=== PATIENT | female | born 1945 | race African-American/Black ===

== ENCOUNTER 2017-09-28 12:19 | Day surgery (SDC) | payer OTHER ==
[2017-09-14 12:01] VITALS: BMI 31.9
[2017-09-28] MEDS ORDERED: MITOMYCIN IC ONE (12:45)
--- NOTE | 2017-09-28 12:48 | HP ---
History & Physical Update - History History: No Change - Physical Physical: No Change - Assessment Assessment: No Change - Plan Plan: No Change
[2017-09-28] MEDS ORDERED: PROPOFOL 20 ML ONE (12:50)
--- NOTE | 2017-09-28 12:50 | OP ---
Operative Note - Note: Operative Date: 09/28/17 Pre-Operative Diagnosis: bladder tumor Operation: TURBT (large) w mitomycin instillation Findings: multiple papillary bladder tumors L anterolat wall Post-Operative Diagnosis: Same as Pre-op Surgeon: Sreekanth Su Anesthesiologist/PIPE INSPECTOR: Tamika Chilel Anesthesia: General Specimens Removed: bladder tumors Estimated Blood Loss (mls): 10 Drains & Tubes with Location: [address]ardo Operative Report Dictated: Yes
[2017-09-28] MEDS ORDERED: MIDAZOLAM HCL 2 MG/2 ML SINGLE DOSE VIAL ONE (12:51)
[2017-09-28] MEDS ORDERED: ONDANSETRON 4 MG/2 ML VIAL IVPUSH PRN (12:58)
[2017-09-28] MEDS ORDERED: oxyCODONE HCL 5 MG TABLET PO PRN (12:58)
[2017-09-28] MEDS ORDERED: LACTATED RINGERS SOLUTION 1,000 ML IV SCH (13:00)
[2017-09-28] MEDS ORDERED: GENTAMICIN SO4 80 MG/2 ML VIAL IVPB ONE (13:24)
[2017-09-28] MEDS ORDERED: GENTAMICIN SO4 80 MG/2 ML VIAL ONE (13:30)
[2017-09-28] MEDS ORDERED: DEXAMETHASONE SOD PHOSPHATE 4 MG/1 ML VIAL ONE (13:30)
--- NOTE | 2017-09-28 14:35 | OP ---
DATE OF OPERATION: 09/28/2017 PREOPERATIVE DIAGNOSIS: Bladder tumors. POSTOPERATIVE DIAGNOSIS: Bladder tumors. PROCEDURE: Transurethral resection of bladder tumors and mitomycin instillation. SURGEON: Sreekanth Su MD RADIOLOGIC TECHNOLOGIST CHIEF: None. ANESTHESIA: General via laryngeal mask. ANESTHESIOLOGIST: Tamika Chilel MD SPECIMENS: Bladder tumors. CULTURES: None. DRAINS: A 22-Latvian, 3-way Almeida catheter, 20-mL balloon. ESTIMATED BLOOD LOSS: Negligible. COMPLICATIONS: None. DESCRIPTION OF PROCEDURE: Patient was brought in the operating room, placed on the operating table in supine position. After administration of intravenous antibiotics, general anesthesia was administered, and sequential compression devices were placed. Pelvic examination under anesthesia was done, demonstrated a mobile pelvic mass. The genitals and vagina were now prepped and draped in the usual sterile manner. The 26-Latvian resectoscope with obturator was inserted into the bladder. The obturator was removed, and urine was evacuated. The transurethral resection Castrejon resectoscope bipolar was inserted, and cystoscopy was performed. This demonstrated no foreign bodies or stones. There was a large papillary tumor involving the left anterolateral wall, as well as several others involving the left lateral and anterior wall. They all appeared papillary in nature. All these tumors were now resected using a loop down to what appeared to be muscle. All visible bladder tumors in the bladder were removed using the resectoscope. Hemostasis was assured with electrocautery. All resected bladder tissue was removed from the bladder using Ellik evacuator. Both ureteral orifices were in their usual location, showed efflux bilaterally, and were clear and uninjured at the end of the procedure. Now, the bladder was left full, and a 22-Latvian Almeida catheter was inserted to 20 mL placed in the balloon, and now, 40 mg of mitomycin were instilled and 80 mg of water and left in place for an hour. CBI was begun. She tolerated the procedure well, was transferred to the recovery room in stable condition. She will be followed in the office. She will require BCG treatments most likely. SREEKANTH SU M.D. [id number]
[2017-09-28] MEDS: metoPROLOL SUCCINATE 25 MG TAB.SR.24H (FP) PO SCH (22:24)
[2017-09-29] MEDS ORDERED: PT OWN MED DRAWER 7, Y5N ONE (09:21)
[2017-09-29] MEDS: metoPROLOL SUCCINATE 25 MG TAB.SR.24H (FP) PO SCH (09:29)
[2017-09-29] MEDS ORDERED: amLODIPine BESYLATE 10 MG TABLET (FP) PO SCH (10:00)
[2017-09-29 14:59] VITALS: BP 118/48; PULSE 77; TEMP 98.6
--- NOTE | 2017-10-02 16:08 | PATH ---
Surgical Pathology Report Patient Name: JUJU WOODS Med. Rec. #: [id number] /Age/Gender: 1945 (Age: 71) / F Account: [id number] Location: AMBULATORY SURG Taken: 09/28/2017 Received: 09/29/2017 Reported: 10/02/2017 Physicians: Sreekanth Su M.D. 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 NO MUSCULARIS PROPRIA PRESENT FOR EVALUATION. Comment: Interdepartmental case reviewed with consensus on diagnosis. This case was discussed with Dr. uS on October 02, 2017. Electronically Signed Khoa Groves M.D. Gross Description Received in formalin labeled "bladder tumor," is a 4.4 x 4.0 x 0.3 cm aggregate of christensen fragments of soft tissue admixed with blood clot. The formalin is filtered and the specimen is entirely submitted in 4 cassettes. /09/29/2017 saudi/09/29/2017
== END 2017-09-29 15:00 | disposition home or self-care (01) ==
LOC: JASU-SURG 12:19 → JASUSAT 12:19 → EDUNIT# 13:00 → J8W 16:36 → JASUSAT 09-29 15:00
PROVIDERS: ATTEND Urology
PROC: 3E0K8GC Introduction of Other Therapeutic Substance into Genitourinary Tract, Via Natural or Artificial Opening Endoscopic (ICD-10-PCS; 2017-09-28)
PROC: 0T5B8ZZ Destruction of Bladder, Via Natural or Artificial Opening Endoscopic (ICD-10-PCS; principal; 2017-09-28 13:00)
DX: C67.9 Malignant neoplasm of bladder, unspecified (principal)
CPT/HCPCS: 88305-TC; 94760

== ENCOUNTER 2018-02-02 11:29 | Day surgery (SDC) | payer OTHER ==
[2018-01-31 13:10] VITALS: BMI 31.2
[2018-02-02] MEDS ORDERED: LIDOCAINE HCL 2% JELLY 10 ML CARTRIDGE ONE (12:25)
--- NOTE | 2018-02-02 13:03 | HP ---
History & Physical Update - History History: No Change - Physical Physical: No Change - Assessment Assessment: No Change - Plan Plan: No Change
--- NOTE | 2018-02-02 13:05 | OP ---
Operative Note - Note: Operative Date: 02/02/18 Pre-Operative Diagnosis: bladder tumor Operation: TURBT Findings: bladder tumor L lat wall Post-Operative Diagnosis: Same as Pre-op Surgeon: Srekeanth Su Anesthesiologist/MULTIMEDIA INSTRUCTIONAL DESIGNER: Jean-Paul Bolanos Anesthesia: General Specimens Removed: bladder tumor Estimated Blood Loss (mls): 0 Drains & Tubes with Location: 22 [address] Operative Report Dictated: Yes
[2018-02-02] MEDS ORDERED: PROPOFOL 20 ML ONE (13:32)
[2018-02-02] MEDS ORDERED: CLINDAMYCIN PHOSPHATE 600 MG/4 ML VIAL ONE (13:41)
[2018-02-02] MEDS ORDERED: CLINDAMYCIN PHOSPHATE 600 MG/4 ML VIAL IVPB ONE (13:45)
[2018-02-02] MEDS ORDERED: DEXAMETHASONE SOD PHOSPHATE 4 MG/1 ML VIAL ONE (13:50)
[2018-02-02] MEDS ORDERED: ONDANSETRON 4 MG/2 ML VIAL IVPUSH PRN (14:18)
[2018-02-02] MEDS ORDERED: ACETAMINOPHEN 1000 MG/100 ML VIAL (NON FORMULARY) IVPB ONE (14:18)
[2018-02-02] MEDS: METOPROLOL TARTRATE 25 MG TABLET (FP) PO SCH (21:15)
--- NOTE | 2018-02-02 21:22 | OP ---
DATE OF OPERATION: 02/02/2018 PREOPERATIVE DIAGNOSIS: Bladder tumor. POSTOPERATIVE DIAGNOSIS: Bladder tumor. PROCEDURE: Transurethral resection of bladder tumor. SURGEON: Sreekanth Flores M.D. BYPRODUCTS PUMP OPERATOR: None. ANESTHESIA: General via laryngeal mask. ANESTHESIOLOGIST: Jean-Paul Bolanos D.O. SPECIMENS: Bladder tumors. CULTURES: None. DRAINS: 22 Anguillan 2-way Almeida catheter, 5 mL balloon. ESTIMATED BLOOD LOSS: None. COMPLICATIONS: None. DESCRIPTION OF PROCEDURE: Patient was brought in the operating room, placed on the operating table in supine position. After administration of general anesthesia via laryngeal mask, intravenous antibiotics were administered, sequential compression devices were placed. The 26 Anguillan resectoscope sheath with obturator was inserted into the bladder. removed, urine was evacuated. 30-degree telescope was inserted with a working element to bipolar transurethral resectoscope. Cystoscope was performed, which demonstrated no foreign bodies. There were several bladder tumors involving the posterior bladder wall on the left just lateral to the ureteral orifice, and on the right behind the right ureteral orifice, as well as on the left lateral wall. Using the loop, these tumors were resected. Hemostasis was assured with electrocautery. Resected tissue was removed from the bladder, and then the bladder was left full. Instrument removed, and a 22 Anguillan Almeida catheter was placed with 10 mL in the balloon. She tolerated procedure well. Transferred to recovery in stable condition. SREEKANTH FLORES M.D. JUAN MANUEL/[id number]
[2018-02-03 06:27] VITALS: TEMP 98.2
[2018-02-03] MEDS ORDERED: amLODIPine BESYLATE 10 MG TABLET (FP) PO SCH (10:00)
[2018-02-03] MEDS ORDERED: CHOLECALCIFEROL (VITAMIN D3) 1,000 UNIT TABLET (FP) PO SCH (10:00)
--- NOTE | 2018-02-03 10:00 | PN ---
Progress Note, Physician Chief Complaint: day #1 s/p TURBT under GA - Current Medication List Current Medications: Active Medications Amlodipine Besylate (Norvasc -) 10 mg PO DAILY [facility] Cholecalciferol (Vitamin D3 -) 1,000 unit PO DAILY [facility] Fentanyl (Sublimaze Injection -) 50 mcg IVPUSH [id number] PRN PRN Reason: PAIN-PACU ORDER X 4 DOSES ONLY Metoprolol Tartrate (Lopressor -) 25 mg PO BID [facility] Last Admin: 02/02/18 21:15 Dose: 25 mg Ondansetron HCl (Zofran Injection) 4 mg IVPUSH Q6H PRN PRN Reason: NAUSEA AND/OR VOMITING - Objective Vital Signs: Vital Signs Temperature 98.2 F 02/03/18 06:00 Pulse Rate 72 02/03/18 06:00 Respiratory Rate 20 02/02/18 21:17 Blood Pressure 143/74 02/03/18 06:00 O2 Sat by Pulse Oximetry (%) 96 02/02/18 19:57 Assessment/Plan Pt is sitting up, doing well with no pain, no apparent anesthetic issues/ complications. Wants to go home.
[2018-02-03] MEDS: METOPROLOL TARTRATE 25 MG TABLET (FP) PO SCH (10:19)
[2018-02-03 11:22] VITALS: BP 143/65; PULSE 77
--- NOTE | 2018-02-07 17:20 | PATH ---
Surgical Pathology Report Patient Name: JUJU WOODS Med. Rec. #: [id number] /Age/Gender: 1945 (Age: 72) / F Account: [id number] Location: AMBULATORY SURG Taken: 02/02/2018 Received: 02/05/2018 Reported: 02/07/2018 Physicians: Sreekanth Su M.D. Specimen(s) Received URINARY BLADDER TUMOR Clinical History Neoplasm of urinary bladder Final Diagnosis Urinary bladder, tumor, TUR: non-invasive High-grade papillary urothelial carcinoma. Muscularis propria is not identified. Electronically Signed Ivana Paul M.D. Gross Description Received in formalin, labeled "urinary bladder tumor" are 2 white-christensen irregular portion of soft tissue each measuring 0.1 cm. in greatest dimension. The specimen is filtered and entirely submitted in one cassette. MLSZ/02/05/2018 sanml/02/05/2018
== END 2018-02-03 12:31 | disposition home or self-care (01) ==
LOC: JASUSAT 11:29 → J6S 18:00 → JASUSAT 02-03 12:31
PROVIDERS: ATTEND Urology
PROC: 0T5B8ZZ Destruction of Bladder, Via Natural or Artificial Opening Endoscopic (ICD-10-PCS; principal; 2018-02-02 13:00)
DX: C67.9 Malignant neoplasm of bladder, unspecified (principal)
CPT/HCPCS: 88305-TC; 94760; J0131

== ENCOUNTER 2020-02-27 04:32 | Day surgery (SDC) | payer OTHER ==
[2020-02-26 17:14] VITALS: BMI 31.6
--- NOTE | 2020-02-27 08:20 | HP ---
History & Physical Update - History History: No Change - Physical Physical: No Change - Assessment Assessment: No Change - Plan Plan: No Change
--- NOTE | 2020-02-27 08:21 | OP ---
Operative Note - Note: Operative Date: 02/27/20 Pre-Operative Diagnosis: bladder tumor Operation: cystoscopy, TURBT (medium) Findings: bladder tumor at L U/O and R BN, tumor inside L U/O Surgeon: Sreekanth Su Anesthesiologist/RESPIRATORY THERAPY AIDE: Russell Harvey Anesthesia: General Specimens Removed: bladder tumor Estimated Blood Loss (mls): 0 Drains & Tubes with Location: [address] Operative Report Dictated: Yes
[2020-02-27] MEDS ORDERED: MIDAZOLAM HCL 2 MG/2 ML SINGLE DOSE VIAL ONE (13:55)
[2020-02-27] MEDS ORDERED: LIDOCAINE HCL 2% JELLY (5 ML/TUBE) ONE (13:56)
[2020-02-27] MEDS ORDERED: LIDOCAINE HCL/PF 2% SDV 5ML VIAL ONE (13:56)
[2020-02-27] MEDS ORDERED: ceFAZolin SODIUM 1 GM VIAL ONE (14:13)
[2020-02-27] MEDS ORDERED: KETOROLAC TROMETHAMINE 30 MG/1 ML VIAL ONE (14:13)
[2020-02-27] MEDS ORDERED: DEXAMETHASONE SOD PHOSPHATE 4 MG/1 ML VIAL ONE (14:13)
[2020-02-27] MEDS ORDERED: ceFAZolin SODIUM 1 GM VIAL IVPB ONE (14:15)
[2020-02-27] MEDS ORDERED: ONDANSETRON 4 MG/2 ML VIAL IVPUSH PRN (14:44)
[2020-02-27] MEDS ORDERED: oxyCODONE HCL 5 MG TABLET PO PRN (14:44)
[2020-02-27 17:42] VITALS: BP 157/69; PULSE 76; TEMP 97.5
--- NOTE | 2020-02-27 17:52 | OP ---
DATE OF OPERATION: 02/27/2020 PREOPERATIVE DIAGNOSIS: Bladder tumor. POSTOPERATIVE DIAGNOSIS: Bladder tumor. PROCEDURE: Cystoscopy and transurethral resection of bladder tumor (medium size). SURGEON: Sreekanth Su M.D. SETTLEMENT CLERK: None. ANESTHESIA: General via laryngeal mask. ANESTHESIOLOGIST: Russell Harvey MD SPECIMENS: Bladder tumor. CULTURES: None. DRAINS: An 18-Rwandan Almeida catheter. ESTIMATED BLOOD LOSS: Negligible. COMPLICATIONS: None. DESCRIPTION OF PROCEDURE: DESCRIPTION OF PROCEDURE: Patient was brought in the operating room, placed on the operating room table in the supine position. After administration of general anesthesia via laryngeal mask, intravenous antibiotics were administered. Sequential compression devices were placed. The patient was placed in dorsal lithotomy position and the vagina and perineum were prepped and draped in usual sterile manner. A 22-Rwandan cystoscope was inserted into the bladder with the visualizing obturator. A 30-degree telescope was inserted, cystoscopy was performed. This demonstrated a papillary bladder tumor at the left ureteral orifice and the bladder neck at the 7 to 8 o'clock position. Now the bladder was left full and the instruments were removed. Now the bipolar Castrejon resectoscope was inserted with the obturator in place. The obturator was removed and urine was evacuated. The Castrejon working element of the resectoscope was inserted, and the transurethral resection of the bladder tumor was done down to its base. This realized that this was right at the ureteral orifice and there was some papillary growth emanating from the left ureteral orifice, and this could not be resected inside the orifice safely. Now the tumor at the bladder neck was resected. All resected bladder tumor was removed from the bladder using Ellik evacuator. Hemostasis was assured with electrocautery. There was no bleeding emanating from the left ureteral orifice. The bladder was left full. The scope removed. An 18-Rwandan Almeida catheter was placed in the bladder and 10 mL was placed in the balloon and placed on gravity drainage, returned clear. She tolerated the procedure well, transferred to the recovery room in stable condition. PLAN: Will remove Almeida catheter in several hours and follow up for left ureteroscopy, stent insertion and fulguration of ureteral tumor. SREEKANTH SU M.D. JUAN MANUEL/[id number]
--- NOTE | 2020-03-02 16:42 | PATH ---
Surgical Pathology Report Patient Name: JUJU WOODS Med. Rec. #: [id number] /Age/Gender: 1945 (Age: 74) / F Account: [id number] Location: [facility] SURGICAL Taken: 02/27/2020 Received: 02/28/2020 Reported: 03/02/2020 Physicians: Sreekanth Su M.D. Specimen(s) Received BLADDER TUMOR Clinical History Bladder tumor Final Diagnosis BLADDER TUMOR, TRANSURETHRAL RESECTION OF BLADDER TUMOR: HIGH GRADE PAPILLARY UROTHELIAL CARCINOMA, INVASIVE TO LAMINA PROPRIA. NO MUSCULARIS PROPRIA IDENTIFIED. NO FLAT CARCINOMA IN SITU (CIS) IDENTIFIED. Comment: Case seen in intradepartmental review with consensus on diagnosis. Office of Dr. Su informed that significant findings will be faxed, 03/02/2020 ([place]). Prior materials are noted. Electronically Signed Ashley Baird M.D. Gross Description Received in formalin labeled "bladder tumor," is a 2.1 x 1.5 x 0.3 cm aggregate of christensen-pink soft tissue fragments. The formalin is filtered and the specimen is entirely submitted in one cassette. DL/02/28/2020 saudi/02/28/2020
== END 2020-02-27 18:35 | disposition home or self-care (01) ==
LOC: JASU-SURG 04:32
PROVIDERS: ATTEND Urology
PROC: 0TBB8ZX Excision of Bladder, Via Natural or Artificial Opening Endoscopic, Diagnostic (ICD-10-PCS; principal; 2020-02-27 14:00)
DX: D49.4 Neoplasm of unspecified behavior of bladder (principal)
CPT/HCPCS: 88307-TC; 94760

== ENCOUNTER 2020-04-16 05:09 | Day surgery (SDC) | payer OTHER ==
[2020-04-15 14:08] VITALS: BMI 32.2
[2020-04-16] MEDS ORDERED: SUCCINYLCHOLINE CHLORIDE 200 MG/10 ML SYRINGE ONE (14:27)
[2020-04-16] MEDS ORDERED: PROPOFOL 20 ML ONE ×2 (14:27)
[2020-04-16] MEDS ORDERED: DEXAMETHASONE SOD PHOSPHATE 4 MG/1 ML VIAL ONE (14:27)
[2020-04-16] MEDS ORDERED: MIDAZOLAM HCL 2 MG/2 ML SINGLE DOSE VIAL ONE (14:28)
[2020-04-16] MEDS ORDERED: CLINDAMYCIN 600 MG PREMIX BAG IVPB ONE (14:45)
[2020-04-16] MEDS ORDERED: CLINDAMYCIN PHOSPHATE 600 MG/4 ML VIAL ONE (14:51)
[2020-04-16 17:28] VITALS: TEMP 98
[2020-04-16 18:46] VITALS: BP 119/66; PULSE 79
== END 2020-04-16 18:40 | disposition home or self-care (01) ==
LOC: JASU-SURG 05:09
PROVIDERS: ATTEND Urology
PROC: 0T578ZZ Destruction of Left Ureter, Via Natural or Artificial Opening Endoscopic (ICD-10-PCS; principal; 2020-04-16 14:30)
PROC: 0T9780Z Drainage of Left Ureter with Drainage Device, Via Natural or Artificial Opening Endoscopic (ICD-10-PCS; 2020-04-16 14:30)
PROC: 0T778DZ Dilation of Left Ureter with Intraluminal Device, Via Natural or Artificial Opening Endoscopic (ICD-10-PCS; 2020-04-16 14:30)
DX: D49.4 Neoplasm of unspecified behavior of bladder (principal); N28.89 Other specified disorders of kidney and ureter
CPT/HCPCS: 76000-TC-FY; 94760

== ENCOUNTER 2020-08-21 04:23 | Day surgery (SDC) | payer OTHER ==
[2020-08-18 13:12] VITALS: BMI 31.6
[2020-08-21] MEDS ORDERED: MIDAZOLAM HCL 2 MG/2 ML SINGLE DOSE VIAL ONE (12:37)
[2020-08-21] MEDS ORDERED: PROPOFOL 20 ML ONE (12:37)
[2020-08-21] MEDS ORDERED: LIDOCAINE HCL/PF 2% SDV 5ML VIAL ONE (12:37)
[2020-08-21] MEDS ORDERED: CLINDAMYCIN 600 MG PREMIX BAG IVPB ONE (12:40)
[2020-08-21] MEDS ORDERED: CLINDAMYCIN PHOSPHATE 600 MG/4 ML VIAL ONE (12:46)
[2020-08-21] MEDS ORDERED: EPHEDRINE SULFATE/0.9% NACL/PF 50 MG/10 ML SYRINGE NR ONE (12:55)
[2020-08-21] MEDS ORDERED: LACTATED RINGERS SOLUTION 1,000 ML IV SCH (14:00)
[2020-08-21] MEDS ORDERED: ONDANSETRON 4 MG/2 ML VIAL IVPUSH PRN (14:00)
[2020-08-21] MEDS ORDERED: oxyCODONE HCL 5 MG TABLET PO PRN (14:00)
[2020-08-21] MEDS ORDERED: oxyCODONE HCL 5 MG TABLET ONE (15:47)
[2020-08-21 18:08] VITALS: BP 148/71; PULSE 74; TEMP 98.2
== END 2020-08-21 19:00 | disposition home or self-care (01) ==
LOC: JASU-SURG 04:23
PROVIDERS: ATTEND Urology
PROC: 0TBB8ZX Excision of Bladder, Via Natural or Artificial Opening Endoscopic, Diagnostic (ICD-10-PCS; principal; 2020-08-21 13:30)
DX: C67.9 Malignant neoplasm of bladder, unspecified (principal)
CPT/HCPCS: 88307-TC; 94760